=== PATIENT | female | born 2000 | race Two or more races ===

== ENCOUNTER 2020-11-15 12:55 | Emergency (ER) | payer OTHER ==
[2020-11-15 15:25] LABS: BASOPHIL 0.8 % (0-2); EOSINOPHIL 2.6 % (0-5); HGB 13.1 g/dl (12.5-16.0); LYMPHOCYTE 32.8 % (15-48); MCH 31.2 pg (25.0-31.0); MCHC 34.5 g/dL (32.0-36.0); MCV 90.5 fL (78.0-100.0); MONOCYTE 6.2 % (0-12); MPV 10.8 fL (6.0-9.5); NEUTROPHIL 57.3 % (41-80); NRBC 0; PLT 278 K/uL (150-400); RDW 12.6 % (11.5-14.0); WBC 6.5 K/uL (4.0-10.5)
[2020-11-15 15:44] LABS: BUN/CREAT RATIO (CALC) 26.4 RATIO; CREATININE 0.53 mg/dL (0.51-0.95); POTASSIUM 3.8 mmol/L (3.5-5.1)
== END 2020-11-15 16:38 | disposition home or self-care (01) ==
LOC: FER 12:55
PROVIDERS: Nurse Practitioner Family
DX: O20.9 Hemorrhage in early pregnancy, unspecified (principal); Z98.890 Other specified postprocedural states; Z3A.00 Weeks of gestation of pregnancy not specified
CPT/HCPCS: 36415; 80048; 84702; 85025; 99284

== ENCOUNTER 2021-05-11 11:52 | Emergency (ER) | payer SELFPAY ==
[2021-05-11] MEDS ORDERED: MEDROL 4MG DOSEP4 MG PO (13:06)
[2021-05-11] MEDS ORDERED: CYCLOBENZAPRINE10 MG PO (13:06)
== END 2021-05-11 13:38 | disposition home or self-care (01) ==
LOC: FER 11:52
DX: S16.1XXA Strain of muscle, fascia and tendon at neck level, initial encounter (principal); X58.XXXA Exposure to other specified factors, initial encounter
CPT/HCPCS: J1100